=== PATIENT | female | born 1995 | race Caucasian/White ===

== ENCOUNTER 2020-09-25 17:25 | Inpatient (IN) | payer BC ==
[2020-09-25] MEDS ORDERED: Lidocaine 1% 50 ML MDV INJECT PRN (18:43)
[2020-09-25] MEDS ORDERED: Water For Irrigation,Sterile 1,000 ML Container IRR PRN (18:43)
[2020-09-25] MEDS ORDERED: Sodium Chloride 0.9% 2.5 ML Syringe FLUSH PRN (18:43)
[2020-09-25] MEDS ORDERED: Methylergonovine 0.2 MG/1 ML Amp IM PRN (18:43)
[2020-09-25] MEDS ORDERED: Nalbuphine 10 MG/1 ML Vial IVPUSH PRN (18:43)
[2020-09-25] MEDS ORDERED: Ondansetron 4 MG/2 ML SDV IVPUSH PRN (18:43)
[2020-09-25] MEDS ORDERED: Misoprostol 200 MCG Tab PO PRN (18:43)
[2020-09-25] MEDS ORDERED: Tranexamic Acid 1,000 MG in Sodium Chloride 0.9% 100 ML IV PRN (18:43)
[2020-09-25] MEDS ORDERED: Sodium Chloride 0.9% 10 ML Syringe FLUSH PRN (18:43)
[2020-09-25] MEDS ORDERED: Carboprost Tromethamine 250 MCG/1 ML Amp IM PRN (18:43)
[2020-09-25] MEDS ORDERED: Butorphanol 1 MG/ML SDV IVPUSH PRN (18:43)
[2020-09-25] MEDS ORDERED: Sodium Chloride 0.9% 10 ML SDV IV PRN (18:43)
[2020-09-25] MEDS ORDERED: Oxytocin/0.9 % Sodium Chloride 30 UNIT/500 ML BAG IV SCH ×2 (18:45→19:15)
[2020-09-25] MEDS: Lactated Ringers 1,000 ML IV SCH ×2 (20:21→23:46)
[2020-09-25] MEDS ORDERED: Bupivicaine/fentaNYL/NS 250 ML ONE (23:22)
--- NOTE | 2020-09-26 00:10 | PCM.PREANE ---
Preanesthetic Assessment - Anesthesia/Transfusion/Family Hx Anesthesia History: No Prior Anesthesia Family History of Anesthesia Reaction: No Transfusion History: No Prior Transfusion(s) - Review of Systems General: No Symptoms Pulmonary: No Symptoms Cardiovascular: No Symptoms Gastrointestinal: No Symptoms Neurological: No Symptoms Other: Reports: None (Denies any personal or family hx of bleeding or clotting problems) - Physical Assessment Height: 1.7 m Weight: 88.451 kg ASA Class: 2 Mental Status: Alert & Oriented x3 Dentition: Reports: Normal Dentition ROM/Head Extension: Full - Lab Values: Laboratory Last Values WBC 12.60 K/uL (4.0-11.0) H 09/25/20 18:35 RBC 3.83 M/uL (4.30-5.90) L 09/25/20 18:35 Hgb 12.2 g/dL (12.0-16.0) 09/25/20 18:35 Hct 36.4 % (36.0-46.0) 09/25/20 18:35 MCV 95.0 fL (80.0-98.0) 09/25/20 18:35 MCH 31.9 pg (27.0-32.0) 09/25/20 18:35 MCHC 33.5 g/dL (31.0-37.0) 09/25/20 18:35 RDW Std Deviation 44.2 fl (28.0-62.0) 09/25/20 18:35 RDW Coeff of Dinah 13 % (11.0-15.0) 09/25/20 18:35 Plt Count 215 K/uL (150-400) 09/25/20 18:35 MPV 11.40 fL (7.40-12.00) 09/25/20 18:35 Nucleated RBC % 0.0 /100WBC 09/25/20 18:35 Nucleated RBCs # 0 K/uL 09/25/20 18:35 Membrane Rupture POSITIVE 09/25/20 17:38 Blood Type A POSITIVE 09/25/20 18:35 Antibody Screen NEGATIVE 09/25/20 18:35 - Allergies Allergies/Adverse Reactions: Allergies Allergy/AdvReac Type Severity Reaction Status Date / Time No Known Allergies Allergy Verified 09/25/20 18:29 - Acknowledgements Anesthesia Type Planned: Epidural Pt an Appropriate Candidate for the Planned Anesthesia: Yes Alternatives and Risks of Anesthesia Discussed w Pt/Guardian: Yes Pt/Guardian Understands and Agrees with Anesthesia Plan: Yes PreAnesthesia Questionnaire - Past Health History Medical/Surgical History: Denies 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: - Infectious Disease History Infectious Disease History: Reports: Other (See Below) Other Infectious Disease History: Covid 19 - Past Surgical History HEENT Surgical History: Reports: Oral Surgery (wisdom teeth) - SUBSTANCE USE Tobacco Use Status *Q: Never Tobacco User Second Hand Smoke Exposure: No Recreational Drug Use History: No - CURRENT (IN HOUSE) MEDS Current Meds: Current Medications Butorphanol Tartrate (Stadol) 1 mg IVPUSH Q1H PRN PRN Reason: Pain Carboprost Tromethamine (Hemabate Ds) 250 mcg IM ASDIRECTED PRN PRN Reason: Post Hemorrhage Lactated Ringer's (Ringers, Lactated) 1,000 mls @ 150 mls/hr IV ASDIRECTED DHRUV Last Admin: 09/25/20 23:46 Dose: 999 mls/hr Documented by: Oxytocin/Sodium Chloride (Oxytocin 30 Unit/500 Ml-Ns) 30 unit in 500 mls @ 999 mls/hr IV TITRATE DHRUV Tranexamic Acid 1,000 mg/ (Sodium Chloride) 110 mls @ 660 mls/hr IV ONETIME PRN PRN Reason: Bleeding Oxytocin/Sodium Chloride (Oxytocin 30 Unit/500 Ml-Ns) 30 unit in 500 mls @ 2 mls/hr IV TITRATE DHRUV; Protocol Last Infusion: 09/25/20 20:58 Dose: 4 munits/min, 4 mls/hr Documented by: Lidocaine HCl (Xylocaine 1%) 50 ml INJECT ONETIME PRN PRN Reason: Laceration repair Methylergonovine Maleate (Methergine) 0.2 mg IM ASDIRECTED PRN PRN Reason: Post Hemorrhage Misoprostol (Cytotec) 200 mcg PO ONETIME PRN PRN Reason: Post Hemorrhage Nalbuphine HCl (Nubain) 10 mg IVPUSH Q1H PRN PRN Reason: Pain (severe 7-10) Ondansetron HCl (Zofran) 4 mg IVPUSH Q6H PRN PRN Reason: Nausea/Vomiting Sodium Chloride (Saline Flush) 10 ml FLUSH ASDIRECTED PRN PRN Reason: Keep Vein Open Sodium Chloride (Saline Flush) 2.5 ml FLUSH ASDIRECTED PRN PRN Reason: Keep Vein Open Sodium Chloride (Normal Saline) 10 ml IV ASDIRECTED PRN PRN Reason: IV Use Sterile Water (Sterile Water For Irrigation) 1,000 ml IRR ASDIRECTED PRN PRN Reason: delivery Discontinued Medications Fentanyl/Bupivacaine HCl (Fentanyl/Bupivacaine/Ns 2 Mcg-0.125% 250 Ml) Confirm Administered Dose 250 mls @ as directed [facility] Stop: 09/25/20 23:23
[2020-09-26] MEDS: Lactated Ringers 1,000 ML IV SCH ×2 (00:21→02:56)
[2020-09-26] MEDS ORDERED: Methylergonovine 0.2 MG/1 ML Amp IM PRN (07:15)
[2020-09-26] MEDS ORDERED: Lanolin 100% Cream 7 GM Tube TOP PRN (07:15)
[2020-09-26] MEDS ORDERED: Tranexamic Acid 1,000 MG in Sodium Chloride 0.9% 100 ML IV PRN (07:15)
[2020-09-26] MEDS ORDERED: Ibuprofen 800 MG Tab PO PRN (07:15)
[2020-09-26] MEDS ORDERED: Bisacodyl 10 MG Supp RECTAL PRN (07:15)
[2020-09-26] MEDS ORDERED: Acetaminophen 500 MG Tab PO PRN ×2 (07:15)
[2020-09-26] MEDS ORDERED: Benzocaine/Menthol 20%-0.5% Spray 78 GM Cannister TOP PRN (07:15)
[2020-09-26] MEDS ORDERED: Ibuprofen 400 MG Tab PO PRN (07:15)
--- NOTE | 2020-09-26 07:15 | PCM.DEL ---
L & D Note - General Info Date of Service: 09/26/20 Mother's Due Date: 10/02/20 - Delivery Note Labor: Induced by Oxytocin Delivery Outcome: Livebirth Infant Delivery Mode: Spontaneous Presentation: Left Occiput Anterior (ALEXX) Nuchal Cord: None (PROM with induction GBS negative.) Prep: Other Anesthesia Type: None Amniotic Fluid Description: Clear Episiotomy Type: None Laceration: Vaginal Suture type: Vicryl Suture size: 3-0 Placenta: Intact, Spontaneous, Abnormal Estimated Blood Loss: 300 Resuscitation Needed: No : Suctioned Score 1 min: 8 Score 5 min: 9 Delivery Comments (Free Text/Narrative):: Liveborn male - General Info Date of Service: 09/26/20 - Patient Data Weight - Most Recent: 88.451 kg I&O - Last 24 Hours: Intake & Output 09/25/20 09/26/20 09/26/20 22:59 06:59 14:59 Intake Total 3400 Balance 3400 Lab Results Last 24 Hours: Laboratory Results - last 24 hr 09/25/20 09/25/20 09/25/20 Range/Units 17:38 18:35 18:35 WBC 12.60 H (4.0-11.0) K/uL RBC 3.83 L (4.30-5.90) M/uL Hgb 12.2 (12.0-16.0) g/dL Hct 36.4 (36.0-46.0) % MCV 95.0 (80.0-98.0) fL MCH 31.9 (27.0-32.0) pg MCHC 33.5 (31.0-37.0) g/dL RDW Std Deviation 44.2 (28.0-62.0) fl RDW Coeff of Dinah 13 (11.0-15.0) % Plt Count 215 (150-400) K/uL MPV 11.40 (7.40-12.00) fL Nucleated RBC % 0.0 /100WBC Nucleated RBCs # 0 K/uL Membrane Rupture POSITIVE Blood Type A POSITIVE Antibody Screen NEGATIVE Med Orders - Current: Current Medications Butorphanol Tartrate (Stadol) 1 mg IVPUSH Q1H PRN PRN Reason: Pain Carboprost Tromethamine (Hemabate Ds) 250 mcg IM ASDIRECTED PRN PRN Reason: Post Hemorrhage Lactated Ringer's (Ringers, Lactated) 1,000 mls @ 150 mls/hr IV ASDIRECTED DHRUV Last Admin: 09/26/20 02:56 Dose: 150 mls/hr Documented by: Oxytocin/Sodium Chloride (Oxytocin 30 Unit/500 Ml-Ns) 30 unit in 500 mls @ 999 mls/hr IV TITRATE DHRUV Tranexamic Acid 1,000 mg/ (Sodium Chloride) 110 mls @ 660 mls/hr IV ONETIME PRN PRN Reason: Bleeding Oxytocin/Sodium Chloride (Oxytocin 30 Unit/500 Ml-Ns) 30 unit in 500 mls @ 2 mls/hr IV TITRATE DHRUV; Protocol Last Infusion: 09/26/20 06:44 Dose: 500 munits/min, 500 mls/hr Documented by: Lidocaine HCl (Xylocaine 1%) 50 ml INJECT ONETIME PRN PRN Reason: Laceration repair Methylergonovine Maleate (Methergine) 0.2 mg IM ASDIRECTED PRN PRN Reason: Post Hemorrhage Misoprostol (Cytotec) 200 mcg PO ONETIME PRN PRN Reason: Post Hemorrhage Nalbuphine HCl (Nubain) 10 mg IVPUSH Q1H PRN PRN Reason: Pain (severe 7-10) Ondansetron HCl (Zofran) 4 mg IVPUSH Q6H PRN PRN Reason: Nausea/Vomiting Sodium Chloride (Saline Flush) 10 ml FLUSH ASDIRECTED PRN PRN Reason: Keep Vein Open Sodium Chloride (Saline Flush) 2.5 ml FLUSH ASDIRECTED PRN PRN Reason: Keep Vein Open Sodium Chloride (Normal Saline) 10 ml IV ASDIRECTED PRN PRN Reason: IV Use Sterile Water (Sterile Water For Irrigation) 1,000 ml IRR ASDIRECTED PRN PRN Reason: delivery Last Admin: 09/26/20 06:28 Dose: 1,000 ml Documented by: Discontinued Medications Fentanyl/Bupivacaine HCl (Fentanyl/Bupivacaine/Ns 2 Mcg-0.125% 250 Ml) Confirm Administered Dose 250 mls @ as directed .ROUTE .[facility]-MED ONE Stop: 09/25/20 23:23 - Problem List & Annotations (1) PROM with onset of labor within 24 hours, [facility] Code(s): 360073179, 387994157 Code(s): O42.00 - KINDRA ROM, ONSET LABOR W/N 24 HR OF RUPT, UNSP WEEKS OF GEST Status: Acute Current Visit: Yes (2) Vaginal delivery SNOMED Code(s): 395172743 Code(s): O80 - ENCOUNTER FOR FULL-TERM UNCOMPLICATED DELIVERY Status: Acute Current Visit: Yes - Problem List Review Problem List Initiated/Reviewed/Updated: Yes - My Orders Last 24 Hours: My Active Orders 09/25/20 17:49 Non Stress Test [RC] PER UNIT ROUTINE Up ad Julieth [RC] ASDIRECTED Vaginal Exam [RC] Click to Edit Vital Signs [RC] PER UNIT ROUTINE Resuscitation Status Routine 09/25/20 18:02 Patient Status [ADT] Routine 09/25/20 18:35 RPR (SYPHILIS SERO) W/ RFLX [REF] Routine 09/25/20 18:43 Heart Tones [RC] CONTINUOUS May Shower [RC] ASDIRECTED Notify Provider [RC] PRN Butorphanol [Stadol] 1 mg IVPUSH Q1H PRN Carboprost Tromethamine [Hemabate DS] 250 mcg IM ASDIRECTED PRN Lidocaine 1% [Xylocaine 1%] 50 ml INJECT ONETIME PRN Methylergonovine [Methergine] 0.2 mg IM ASDIRECTED PRN Nalbuphine [Nubain] 10 mg IVPUSH Q1H PRN Ondansetron [Zofran] 4 mg IVPUSH Q6H PRN Sodium Chloride 0.9% [Normal Saline] 10 ml IV ASDIRECTED PRN Sodium Chloride 0.9% [Saline Flush] 10 ml FLUSH ASDIRECTED PRN Sodium Chloride 0.9% [Saline Flush] 2.5 ml FLUSH ASDIRECTED PRN Tranexamic Acid [Cyklokapron] 1,000 mg Sodium Chloride 0.9% [Normal Saline] 100 ml IV ONETIME Water For Irrigation,Sterile [Sterile Water for Irrigation] 1,000 ml IRR ASDIRECTED PRN miSOPROStoL [Cytotec] 200 mcg PO ONETIME PRN Scalp Electrode [WOMSER] Per Unit Routine Peripheral IV Insertion Adult [OM.PC] Routine 09/25/20 18:45 Lactated Ringers [Ringers, Lactated] 1,000 ml IV ASDIRECTED Oxytocin/0.9 % Sodium Chloride [Oxytocin 30 Unit/500 ML-NS] 30 unit in 500 ml IV TITRATE 09/25/20 19:15 Oxytocin/0.9 % Sodium Chloride [Oxytocin 30 Unit/500 ML-NS] 30 unit in 500 ml IV TITRATE
--- NOTE | 2020-09-26 07:36 | PCM48HPAN ---
Post Anesthesia Note - EVALUATION WITHIN 48HRS OF ANESTHETIC Vital Signs in Normal Range: Yes Patient Participated in Evaluation: Yes Respiratory Function Stable: Yes Airway Patent: Yes Cardiovascular Function Stable: Yes Hydration Status Stable: Yes Pain Control Satisfactory: Yes Nausea and Vomiting Control Satisfactory: Yes Mental Status Recovered: Yes - COMMENTS/OBSERVATIONS Free Text/Narrative:: Denies complaints
[2020-09-26] MEDS: Docusate Sodium 100 MG Cap PO PRN (10:02)
--- NOTE | 2020-09-26 12:34 | OR ---
SURGEON: Ana María Heller M.D. DATE OF PROCEDURE: 09/26/2020 PREOPERATIVE DIAGNOSES: A 39-week intrauterine , premature rupture of membranes. POSTOPERATIVE DIAGNOSES: A 39-week intrauterine , premature rupture of membranes. PROCEDURES: Pitocin induction of labor, term spontaneous vaginal delivery, repair of vaginal laceration. PRIMARY SURGEON: Ana María Heller M.D. ANESTHESIA: Epidural. ESTIMATED BLOOD LOSS: Less than 300 mL. FINDINGS: Liveborn male, scores of 8 and 9, weighing 8 pounds 3 ounces. Placenta spontaneous, Schultze intact, with 3 vessels. Vaginal laceration was present. No other lacerations. COMPLICATIONS: None known. DISPOSITION: Mother and baby in LDR in good condition. BRIEF HISTORY: This is a 25-year-old female, G1, P0, at 39 weeks' gestation. She presents with spontaneous rupture of membranes at approximately 1 p.m. She presented in the early evening to Labor and Delivery. Clear fluid. Good movement. Category I heart tones. She requested to walk and be reassessed for cervical change, and after 2 hours, there was no cervical change. She was still 1 to 2 cm, 80% effaced, and therefore, Pitocin was initiated. She had category I heart tones throughout labor. She received an epidural for pain control. She progressed to complete. DESCRIPTION OF PROCEDURE: With the patient in dorsal lithotomy position, under adequate epidural analgesia, the patient pushed over a 45-minute time period to a 5+ station at which time the head was delivered spontaneously and atraumatically over the perineum with support with subsequent delivery of the infant's shoulders and body without any difficulty. The infant was bulb suctioned by nose and mouth, and after 1 minute, the cord was doubly clamped and cut. The infant was handed to the mother in the presence of the nurse attending delivery. The was a liveborn male, scores of 8 and 9, weighing 8 pounds 3 ounces. Cord blood was collected for cord ABGs as well as routine cord blood sampling. Pitocin was initiated after delivery of the to assist with delivery of the placenta, which was delivered spontaneously, Schultze intact, with 3 vessels. Upon inspection of the pelvis and perineum, there were no periurethral, cervical, perineal, or rectal lacerations. There was a vaginal laceration at 5 o'clock that was repaired with a running lock suture of 3-0 Vicryl. Final sponge, needle, and instrument counts were correct. There were no known complications. Mother and baby remained in LDR in good condition. EWELINA ROMANO /[id number]
[2020-09-27] MEDS: Witch Hazel Medicated Pads 40/Jar TOP PRN ×2 (00:06→09:07)
--- NOTE | 2020-09-27 07:10 | PCM.PNPP ---
- General Info Date of Service: 09/27/20 Subjective Update: 25yo P1 s/p NSD PPD 1 voiding Denies any complains today Functional Status: Reports: Pain Controlled, Tolerating Diet, Ambulating, Urinating - Review of Systems General: Reports: No Symptoms HEENT: Reports: No Symptoms Pulmonary: Reports: No Symptoms Cardiovascular: Reports: No Symptoms Gastrointestinal: Reports: No Symptoms Genitourinary: Reports: No Symptoms Musculoskeletal: Reports: No Symptoms Skin: Reports: No Symptoms Neurological: Reports: No Symptoms Psychiatric: Reports: No Symptoms - General Info Date of Service: 09/27/20 - Patient Data Vital Signs - Most Recent: Last Vital Signs Temp 36.4 C 09/27/20 04:00 Pulse 78 09/27/20 04:00 Resp 16 09/27/20 04:00 BP 121/67 09/27/20 04:00 Pulse Ox 97 09/27/20 04:00 Weight - Most Recent: 88.451 kg Lab Results - Last 24 Hours: Laboratory Results - last 24 hr 09/26/20 09/27/20 Range/Units 06:43 05:38 Hgb 11.1 L (12.0-16.0) g/dL Hct 33.9 L (36.0-46.0) % Cord ABG pH 7.304 (7.18-7.38) Cord ABG Base Excess -4 (-10--2) Cord VBG pH 7.419 (7.25-7.45) Cord VBG Base Excess -4 (-10--2) Med Orders - Current: Current Medications Acetaminophen (Tylenol Extra Strength) 500 mg PO Q4H PRN PRN Reason: Pain Acetaminophen (Tylenol Extra Strength) 1,000 mg PO Q4H PRN PRN Reason: Pain Benzocaine/Menthol (Dermoplast Pain Relief 20%-0.5% Mead) 78 gm TOP ASDIRECTED PRN PRN Reason: Perineal Comfort Measure Bisacodyl (Dulcolax) 10 mg RECTAL ONETIME PRN PRN Reason: Constipation Docusate Sodium (Colace) 100 mg PO BID PRN PRN Reason: Constipation Last Admin: 09/26/20 10:02 Dose: 100 mg Documented by: Emollient Ointment (Lansinoh Hpa) 0 gm TOP ASDIRECTED PRN PRN Reason: Sore Nipples Tranexamic Acid 1,000 mg/ (Sodium Chloride) 110 mls @ 660 mls/hr IV ONETIME PRN PRN Reason: Bleeding Ibuprofen (Motrin) 400 mg PO Q4H PRN PRN Reason: Pain Ibuprofen (Motrin) 800 mg PO Q6H PRN PRN Reason: Pain Methylergonovine Maleate (Methergine) 0.2 mg IM ONETIME PRN PRN Reason: Excessive Vaginal Bleeding Witch Priscilla (Tucks) 1 pad TOP ASDIRECTED PRN PRN Reason: comfort care Last Admin: 09/27/20 00:06 Dose: 1 container Documented by: Discontinued Medications Butorphanol Tartrate (Stadol) 1 mg IVPUSH Q1H PRN PRN Reason: Pain Carboprost Tromethamine (Hemabate Ds) 250 mcg IM ASDIRECTED PRN PRN Reason: Post Hemorrhage Lactated Ringer's (Ringers, Lactated) 1,000 mls @ 150 mls/hr IV ASDIRECTED DHRUV Last Admin: 09/26/20 02:56 Dose: 150 mls/hr Documented by: Oxytocin/Sodium Chloride (Oxytocin 30 Unit/500 Ml-Ns) 30 unit in 500 mls @ 999 mls/hr IV TITRATE DHRUV Tranexamic Acid 1,000 mg/ (Sodium Chloride) 110 mls @ 660 mls/hr IV ONETIME PRN PRN Reason: Bleeding Oxytocin/Sodium Chloride (Oxytocin 30 Unit/500 Ml-Ns) 30 unit in 500 mls @ 2 mls/hr IV TITRATE DHRUV; Protocol Last Infusion: 09/26/20 06:44 Dose: 500 munits/min, 500 mls/hr Documented by: Fentanyl/Bupivacaine HCl (Fentanyl/Bupivacaine/Ns 2 Mcg-0.125% 250 Ml) Confirm Administered Dose 250 mls @ as directed .ROUTE .[facility]-MED ONE Stop: 09/25/20 23:23 Lidocaine HCl (Xylocaine 1%) 50 ml INJECT ONETIME PRN PRN Reason: Laceration repair Methylergonovine Maleate (Methergine) 0.2 mg IM ASDIRECTED PRN PRN Reason: Post Hemorrhage Misoprostol (Cytotec) 200 mcg PO ONETIME PRN PRN Reason: Post Hemorrhage Nalbuphine HCl (Nubain) 10 mg IVPUSH Q1H PRN PRN Reason: Pain (severe 7-10) Ondansetron HCl (Zofran) 4 mg IVPUSH Q6H PRN PRN Reason: Nausea/Vomiting Sodium Chloride (Saline Flush) 10 ml FLUSH ASDIRECTED PRN PRN Reason: Keep Vein Open Sodium Chloride (Saline Flush) 2.5 ml FLUSH ASDIRECTED PRN PRN Reason: Keep Vein Open Sodium Chloride (Normal Saline) 10 ml IV ASDIRECTED PRN PRN Reason: IV Use Sterile Water (Sterile Water For Irrigation) 1,000 ml IRR ASDIRECTED PRN PRN Reason: delivery Last Admin: 09/26/20 06:28 Dose: 1,000 ml Documented by: - Recovery Exam Fundal Tone: Firm Fundal Level: 2 Fingerbreadths Below Umbilicus Fundal Placement: Midline Lochia Amount: Scant Lochia Color: Rubra/Red Bladder Status: Voiding - Exam General: Alert HEENT: Pupils Equal Neck: Supple Lungs: Clear to Auscultation Cardiovascular: Regular Rate, Regular Rhythm GI/Abdominal Exam: Normal Bowel Sounds Extremities: Normal Inspection Neurological: No New Focal Deficit Psy/Mental Status: Alert - Problem List & Annotations (1) Vaginal delivery SNOMED Code(s): 385396068 Code(s): O80 - ENCOUNTER FOR FULL-TERM UNCOMPLICATED DELIVERY Status: Acute Current Visit: Yes - Problem List Review Problem List Initiated/Reviewed/Updated: Yes - My Orders Last 24 Hours: My Active Orders 09/27/20 05:20 Ready for Discharge [RC] PER UNIT ROUTINE - Assessment Assessment:: 25yo P1 s/p PPD1 stable Normal lochia - Plan Plan:: Routine Discharge home
[2020-09-27] MEDS: Docusate Sodium 100 MG Cap PO PRN (09:08)
== END 2020-09-27 13:15 | disposition home or self-care (01) | DRG 560 ==
LOC: MW.OBCHECK 17:25 → MW.OB 17:26 → MW.OBCHECK 18:42 → MW.OB 18:43 → OBSVTOIN 09-26 06:43 → MW.OB 09-26 09:30
PROVIDERS: ADMIT Obstetrics & Gynecology; ATTEND Obstetrics & Gynecology
PROC: 10E0XZZ Delivery of Products of Conception, External Approach (ICD-10-PCS; principal; 2020-09-26)
PROC: 10907ZC Drainage of Amniotic Fluid, Therapeutic from Products of Conception, Via Natural or Artificial Opening (ICD-10-PCS; 2020-09-26)
PROC: 0UQGXZZ Repair Vagina, External Approach (ICD-10-PCS; 2020-09-26)
PROC: 3E0R3BZ Introduction of Anesthetic Agent into Spinal Canal, Percutaneous Approach (ICD-10-PCS; 2020-09-26)
PROC: 00HU33Z Insertion of Infusion Device into Spinal Canal, Percutaneous Approach (ICD-10-PCS; 2020-09-26)
DX: O42.92 Full-term premature rupture of membranes, unspecified as to length of time between rupture and onset of labor (principal); Z3A.39 39 weeks gestation of pregnancy; Z37.0 Single live birth; O71.4 Obstetric high vaginal laceration alone
CPT/HCPCS: 01967; 36415; 51702; 59025; 59409; 82803; 84112; 85014; 85018; 85027; 86592; 86850; 86900; 86901; A9270-GY; J2590; J3010; J7120

== ENCOUNTER 2021-05-03 08:35 | Day surgery (SDC) | payer BC ==
--- NOTE | 2021-05-03 08:10 | PCM.PREANE ---
Preanesthetic Assessment - Anesthesia/Transfusion/Family Hx Anesthesia History: No Prior Anesthesia Other Type of Anesthesia Reaction Comment: "no laughing gas", causes her to have N&V Transfusion History: No Prior Transfusion(s) - Review of Systems General: No Symptoms Pulmonary: No Symptoms Cardiovascular: No Symptoms Gastrointestinal: No Symptoms Neurological: No Symptoms Other: Reports: None - Physical Assessment NPO Status Date: 05/03/21 NPO Status Time: 00:00 Height: 5 ft 7 in Weight: 158 lb ASA Class: 1 Mental Status: Alert & Oriented x3 Airway Class: Mallampati = 1 Dentition: Reports: Normal Dentition Thyro-Mental Finger Breadths: 3 Mouth Opening Finger Breadths: 3 ROM/Head Extension: Full Lungs: Clear to Auscultation, Normal Respiratory Effort Cardiovascular: Regular Rate, Regular Rhythm - Allergies Allergies/Adverse Reactions: Allergies Allergy/AdvReac Type Severity Reaction Status Date / Time No Known Allergies Allergy Verified 04/30/21 12:08 - Blood Blood Available: No - Anesthesia Plan Pre-Op Medication Ordered: Other (Scopolamine) - Acknowledgements Anesthesia Type Planned: General Anesthesia, Regional Block Pt an Appropriate Candidate for the Planned Anesthesia: Yes Alternatives and Risks of Anesthesia Discussed w Pt/Guardian: Yes Pt/Guardian Understands and Agrees with Anesthesia Plan: Yes PreAnesthesia Questionnaire - Past Health History Medical/Surgical History: Denies Medical/Surgical History HEENT History: Reports: Other (See Below) Other HEENT History: wears glasses/contacts Cardiovascular History: Reports: None Respiratory History: Reports: None Gastrointestinal History: Reports: None Genitourinary History: Reports: None 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: Musculoskeletal History: Reports: None Neurological History: Reports: None Psychiatric History: Reports: None Endocrine/Metabolic History: Reports: None Hematologic History: Reports: None Immunologic History: Reports: None Oncologic (Cancer) History: Reports: None Dermatologic History: Reports: None - Infectious Disease History Infectious Disease History: Reports: Other (See Below) Other Infectious Disease History: Covid 19 - Past Surgical History Head Surgeries/Procedures: Reports: None HEENT Surgical History: Reports: Oral Surgery Other HEENT Surgeries/Procedures: wisdom teeth extraction Cardiovascular Surgical History: Reports: None Respiratory Surgical History: Reports: None GI Surgical History: Reports: None Female Surgical History: Reports: None Endocrine Surgical History: Reports: None Neurological Surgical History: Reports: None Musculoskeletal Surgical History: Reports: None Oncologic Surgical History: Reports: None Dermatological Surgical History: Reports: None - SUBSTANCE USE Tobacco Use Status *Q: Never Tobacco User - HOME MEDS Home Medications: Home Meds Docusate Sodium [Colace] 1 tab PO ASDIRECTED PRN 04/30/21 [History] Norethindrone [Mónica] 1 tab PO DAILY 04/30/21 [History] - CURRENT (IN HOUSE) MEDS Current Meds: Current Medications Albuterol (Albuterol 0.083% 2.5 Mg/3 Ml Neb Soln) 2.5 mg NEB ONETIME PRN PRN Reason: Wheezing Droperidol (Droperidol 5 Mg/2 Ml Sdv) 0.625 mg IVPUSH ONETIME PRN PRN Reason: Nausea/Vomiting Fentanyl (Fentanyl 100 Mcg/2 Ml Sdv) 50 mcg IVPUSH Q5M PRN PRN Reason: Pain (mild 1-3) Hydromorphone HCl (Hydromorphone 2 Mg/Ml Syringe) 1 mg IVPUSH Q10M PRN PRN Reason: Pain (moderate 4-6) Metoclopramide HCl (Metoclopramide 10 Mg/2 Ml Sdv) 10 mg IVPUSH ONETIME PRN PRN Reason: Nausea/Vomiting Morphine Sulfate (Morphine 2 Mg/Ml Syringe) 2 mg IVPUSH Q10M PRN PRN Reason: Pain (severe 7-10) Naloxone HCl (Naloxone 0.4 Mg/Ml Syringe) 0.1 mg IVPUSH ASDIRECTED PRN PRN Reason: Respiratory Depression Ondansetron HCl (Ondansetron 4 Mg/2 Ml Sdv) 4 mg IVPUSH ONETIME PRN PRN Reason: Nausea/Vomiting Discontinued Medications Bupivacaine HCl (Bupivacaine 0.5% 30 Ml Sdv) Confirm Administered Dose 30 ml .ROUTE .[facility]-MED ONE Stop: 05/03/21 07:41 Bupivacaine HCl/Epinephrine Bitart (Sensorc Mpf 0.25%-Epi [id number]) Confirm Administered Dose 30 mls @ as directed .ROUTE .[facility]-MED ONE Stop: 05/03/21 07:41
[~2021-05-03 08:35] MED LIST: Albuterol 0.083% 2.5 MG/3 ML Neb Soln NEB PRN; Bupivacaine 0.5% 30 ML SDV ONE; Bupivacaine 25%/EPINEPHrine/PF 30 ML ONE; Dexamethasone 4 MG/ML 5 ML MDV ONE; Glycopyrrolate 0.2 MG/ML SDV ONE; HYDROmorphone 2 MG/ML Syringe IVPUSH PRN; Ketorolac 30 MG/ML SDV ONE; Lidocaine 2% 5 ML SDV ONE; Metoclopramide 10 MG/2 ML SDV IVPUSH PRN; Morphine 2 MG/ML SYRINGE IVPUSH PRN; Naloxone 0.4 MG/ML Syringe IVPUSH PRN; Ondansetron 4 MG/2 ML SDV IVPUSH PRN; Ondansetron 4 MG/2 ML SDV ONE; Propofol 200 MG/20 ML SDV ONE; Rocuronium Bromide 50 MG/5 ML Syringe ONE; fentaNYL 100 MCG/2 ML SDV ONE
[2021-05-03] MEDS ORDERED: Octyl 2-Cyanoacrylate 1 Tube ONE (09:00)
[2021-05-03] MEDS ORDERED: Bupivacaine 0.25% 10 ML SDV ONE (09:00)
[2021-05-03 09:39] LABS: BLOOD UREA NITROGEN,BUN 17 mg/dL (7.0-18.0); CARBON DIOXIDE,CO2 27.3 mmol/L (21.0-32.0); CHLORIDE,CL 105 mmol/L (98-107); GLUCOSE RANDOM 82 mg/dL (74-106); POTASSIUM,K 3.9 mmol/L (3.5-5.1); SODIUM,NA 139 mmol/L (136-145)
[2021-05-03] MEDS ORDERED: Dexmedetomidine 200 MCG/2 ML SDV ONE (10:24)
[2021-05-03] MEDS: fentaNYL 100 MCG/2 ML SDV IVPUSH PRN ×2 (10:56→11:10)
--- NOTE | 2021-05-03 11:00 | PCM.POSTAN ---
POST ANESTHESIA ASSESSMENT - MENTAL STATUS Mental Status: Alert, Oriented - VITAL SIGNS Vital Signs: Last Vital Signs Temp 97.2 F 05/03/21 08:55 Pulse 66 05/03/21 08:55 Resp 16 05/03/21 08:55 BP 117/68 05/03/21 08:55 Pulse Ox 99 05/03/21 08:55 - RESPIRATORY Respiratory Status: Respiratory Rate WNL, Airway Patent, O2 Saturation Stable - CARDIOVASCULAR CV Status: Pulse Rate WNL, Blood Pressure Stable - GASTROINTESTINAL GI Status: No Symptoms - POST OP HYDRATION Hydration Status: Adequate & Stable
--- NOTE | 2021-05-03 11:01 | PCM48HPAN ---
Post Anesthesia Note - EVALUATION WITHIN 48HRS OF ANESTHETIC Vital Signs in Normal Range: Yes Patient Participated in Evaluation: Yes Respiratory Function Stable: Yes Airway Patent: Yes Cardiovascular Function Stable: Yes Hydration Status Stable: Yes Pain Control Satisfactory: Yes Nausea and Vomiting Control Satisfactory: Yes Mental Status Recovered: Yes Vital Signs: Last Vital Signs Temp 97.2 F 05/03/21 08:55 Pulse 66 05/03/21 08:55 Resp 16 05/03/21 08:55 BP 117/68 05/03/21 08:55 Pulse Ox 99 05/03/21 08:55
[2021-05-03] MEDS ORDERED: Acetaminophen/oxyCODONE 325-5 MG Tab PO PRN (11:02)
--- NOTE | 2021-05-03 11:11 | PCM.OPNOTE ---
- General Post-Op/Procedure Note Date of Surgery/Procedure: 05/03/21 Operative Procedure(s): Open right ovarian cystectomy. Pelvic washings Findings: Normal-appearing cervix, uterus, and left ovary. Right ovary with 6cm dermoid cyst. Pre Op Diagnosis: Right ovarian cyst, suspected dermoid. Pelvic pain Post-Op Diagnosis: Same Anesthesia Technique: General LMA, Regional Block (Transversus abdominus plane, rectus abdominus) Primary Surgeon: Day Pulido Anesthesia Provider: Carlos Villela Tunnel Heading Inspector: Courtney Tariq Pathology: Pelvic washings Right ovarian cyst Fluid Replacement, Intraop: 750 Output, Urine Amount: 250 EBL in mLs: 15 Complications: None Condition: Good Free Text/Narrative:: Intake & Output 05/02/21 05/03/21 05/03/21 22:59 06:59 14:59 Output Total 250 Balance -250
--- NOTE | 2021-05-03 12:46 | OR ---
SURGEON: Day Pulido MD DATE OF PROCEDURE: 05/03/2021 PREOPERATIVE DIAGNOSES: 1. A 26-year-old with right ovarian cyst, suspected dermoid. 2. Pelvic pain. POSTOPERATIVE DIAGNOSES: 1. A 26-year-old with right ovarian cyst, suspected dermoid. 2. Pelvic pain. PROCEDURE: Open right ovarian cystectomy and pelvic washing. PRIMARY SURGEON: Day Pulido MD DRAWER IN DOBBY LOOM: Courtney Tariq M.D. ANESTHESIA: General endotracheal and regional block. INTRAVENOUS FLUIDS: 750 mL of LR. URINE OUTPUT: 250 mL. ESTIMATED BLOOD LOSS: 15 mL. PATHOLOGY: Pelvic washings and right ovarian cyst. COMPLICATIONS: None. INDICATIONS: This is a 26-year-old with a known right ovarian cyst that has been followed for several months in clinic. Over the past year, it has grown from approximately 1 cm in size to a size of 6 cm. She has developed pelvic and perineal pain and desired removal of the cyst for treatment of her pain. The risks, benefits, and alternatives of the procedure were reviewed with the patient prior to surgery. The plan was made to perform surgery via laparotomy just due to size of the ovarian cyst and risk of intraperitoneal rupture. DESCRIPTION OF PROCEDURE: The patient was taken to the operating room where general anesthesia was obtained without difficulty. A transversus abdominis plane and rectus abdominis plane blocks were performed by Anesthesia. She was placed in dorsal lithotomy position with legs in Yellofin stirrups. She was prepared and draped in normal sterile fashion. A Graves speculum was inserted into the vagina. The anterior lip of the cervix was grasped with an Allis clamp. The My Visual Brief uterine manipulator was placed. The Allis clamp and speculum were removed. The surgeon's gloves were changed. A suprapubic skin incision was made roughly 5 cm in length. This was carried through to the underlying layer of fascia with Bovie. The fascia was incised in the midline, and the incision extended laterally with the Bovie. The rectus muscles were . The peritoneum was identified in the midline, grasped with 2 hemostats and entered sharply with Metzenbaum scissors, ensuring that no bowel or bladder were involved. The peritoneal incision was extended. A small Stone retractor was placed. Pelvic washings were obtained. The Trendelenburg position was used to facilitate moving the bowel and omentum out of the pelvis. The bowel was packed with one lap. The left ovary was evaluated and noted to appear normal with follicles. The uterus appeared normal. The right ovary was identified and brought through the incision. The Bovie was used to incise the capsule of the right ovarian cyst. The capsule was then easily shelled with a combination of hemostats and blunt traction. It was easily removed from the surrounding capsule. The Bovie was used to obtain hemostasis of the ovarian capsule. The capsule was closed with a running stitch of 0 chromic suture. Hemostasis was noted. The ovary was returned to the pelvis, and the pelvis was thoroughly irrigated. The Stone retractor was removed. The rectus muscles were closed with a running stitch of 0 Vicryl suture. The fascia was closed with a running stitch of 0 Vicryl suture. The skin was closed with 4-0 Monocryl in a subcuticular fashion followed by Steri-Strips. The Graves speculum was reinserted into the vagina. The My Visual Brief uterine manipulator was removed. Hemostasis was noted at the cervix. The speculum was removed. The patient was awakened and taken to recovery room in stable condition. She tolerated the procedure well. All sponge, lap, and needle counts were correct x2. [id number] / MODL /[id number] [email or web address] Miguel
== END 2021-05-03 14:43 | disposition home or self-care (01) ==
LOC: MW.SDS 08:35
PROVIDERS: ATTEND Obstetrics & Gynecology
DX: D27.0 Benign neoplasm of right ovary (principal); N76.0 Acute vaginitis; Z79.899 Other long term (current) drug therapy
CPT/HCPCS: 36415; 58925; 80048; 84703; 85025; 86850; 86900; 86901; 88307; 88312; A9270; J0131; J1100; J1170; J1885; J2405; J2704; J3010; J3490; 00840

== ENCOUNTER 2022-10-13 19:08 | Inpatient (IN) | payer BC ==
[2022-10-13] MEDS ORDERED: Methylergonovine 0.2 MG/1 ML Amp IM PRN (19:43)
[2022-10-13] MEDS ORDERED: Carboprost Tromethamine 250 MCG/1 ML Amp IM PRN (19:43)
[2022-10-13] MEDS ORDERED: Sodium Chloride 0.9% 20 ML SDV IV PRN (19:43)
[2022-10-13] MEDS ORDERED: Ondansetron 4 MG/2 ML SDV IVPUSH PRN (19:43)
[2022-10-13] MEDS ORDERED: Sodium Chloride 0.9% 2.5 ML Syringe FLUSH PRN (19:43)
[2022-10-13] MEDS ORDERED: Tranexamic Acid 1,000 MG in Sodium Chloride 0.9% 100 ML IV PRN (19:43)
[2022-10-13] MEDS ORDERED: Misoprostol 200 MCG Tab PO PRN (19:43)
[2022-10-13] MEDS ORDERED: Sodium Chloride 0.9% 10 ML Syringe FLUSH PRN (19:43)
[2022-10-13] MEDS ORDERED: Water For Irrigation,Sterile 1,000 ML Container IRR PRN (19:43)
[2022-10-13] MEDS ORDERED: Butorphanol 1 MG/ML SDV IVPUSH PRN (19:43)
[2022-10-13] MEDS ORDERED: Lidocaine 1% 50 ML MDV INJECT PRN (19:43)
[2022-10-13] MEDS ORDERED: Oxytocin/0.9 % Sodium Chloride 30 UNIT/500 ML BAG IV SCH (19:45)
[2022-10-13] MEDS ORDERED: Ropivacaine/PF 400 MG/200 ML PCA ONE (20:33)
[2022-10-13] MEDS ORDERED: Phenylephrine HCl In 0.9% NaCl 1 MG/10 ML Vial IVPUSH PRN (20:40)
[2022-10-13] MEDS ORDERED: ePHEDrine 50 MG/ML SDV IVPUSH PRN ×2 (20:40)
[2022-10-13] MEDS ORDERED: Phenylephrine HCl In 0.9% NaCl 1 MG/10 ML Vial IVPUSH SCH (20:45)
[2022-10-13] MEDS ORDERED: Ropivacaine HCl/PF 400 MG in Premix Bag 1 BAG EPIDUR SCH (20:45)
[2022-10-13] MEDS: Lactated Ringers 1,000 ML IV SCH ×2 (21:18→21:19)
[2022-10-13] MEDS ORDERED: Acetaminophen 500 MG Tab PO PRN (22:57)
[2022-10-13] MEDS ORDERED: Ibuprofen 400 MG Tab PO PRN (22:57)
[2022-10-13] MEDS ORDERED: oxyCODONE 5 MG Tab PO PRN (22:57)
[2022-10-13] MEDS ORDERED: Benzocaine/Menthol 20%-0.5% Spray 78 GM Cannister TOP PRN (22:57)
[2022-10-13] MEDS ORDERED: Lanolin 100% Cream 7 GM Tube TOP PRN (22:57)
[2022-10-13] MEDS ORDERED: Bisacodyl 10 MG Supp RECTAL PRN (22:57)
[2022-10-14] MEDS: Witch Hazel Medicated Pads 40/Jar TOP PRN (02:01)
[2022-10-14] MEDS: Ibuprofen 800 MG Tab PO PRN (04:27)
[2022-10-14] MEDS: Docusate Sodium 100 MG Cap PO PRN ×2 (07:43→20:40)
[2022-10-14] MEDS: Acetaminophen 500 MG Tab PO PRN (07:43)
[2022-10-15] MEDS: Ibuprofen 800 MG Tab PO PRN (04:10)
[2022-10-15] MEDS: Acetaminophen 500 MG Tab PO PRN (04:11)
[2022-10-15] MEDS: Witch Hazel Medicated Pads 40/Jar TOP PRN (05:17)
== END 2022-10-15 11:16 | disposition home or self-care (01) | DRG 560 ==
LOC: MW.OBCHECK 19:08 → MW.OB 19:09 → MW.OBCHECK 19:43 → MW.OB 19:43 → OBSVTOIN 22:24 → MW.OB 10-14 02:50
PROVIDERS: ADMIT Obstetrics & Gynecology; ATTEND Obstetrics & Gynecology
PROC: 10E0XZZ Delivery of Products of Conception, External Approach (ICD-10-PCS; principal; 2022-10-13)
PROC: 10907ZC Drainage of Amniotic Fluid, Therapeutic from Products of Conception, Via Natural or Artificial Opening (ICD-10-PCS; 2022-10-13)
PROC: 3E0R3BZ Introduction of Anesthetic Agent into Spinal Canal, Percutaneous Approach (ICD-10-PCS; 2022-10-13)
PROC: 00HU33Z Insertion of Infusion Device into Spinal Canal, Percutaneous Approach (ICD-10-PCS; 2022-10-13)
DX: O70.0 First degree perineal laceration during delivery (principal); Z3A.38 38 weeks gestation of pregnancy; Z37.0 Single live birth; Z20.822 Contact with and (suspected) exposure to COVID-19; Z86.16 Personal history of COVID-19
CPT/HCPCS: 36415; 51702; 59025; 59409; 85014; 85018; 85027; 86592; 86850; 86900; 86901; A9270-GY; J2590; J2795; J7120; U0002